=== PATIENT | female | born 1930 | race Caucasian/White ===

== ENCOUNTER 2016-08-10 10:52 | Emergency (ER) | payer MEDICARE, OTHER ==
[~2016-08-10] VITALS: Ht 162.6 cm; Wt 75.0 kg
[~2016-08-10 10:52] MED LIST: ACTONEL5 MG PO; ACYCLOVIR400 MG PO; ADVAIR DISK1 INH; ADVAIR DISKUS IN; ANTIVERT PO; CEPHALEXIN500 MG PO; CLONAZEP ODT0.5 MG OR; CLONAZEP ODT0.5 MG PO; FLUTICASONE50 MCG; GABAPENTIN100 MG PO; HYDROCO/APAP1 TA9 PO; KEFLEX500 MG PO; KLONOPIN0.5 MG PO; MACRODANTIN100 MG PO; NORCO1 TA1 PO; NORCO1 TA2 PO; OMEPRAZOLE20 MG PO; OSCAL 500/1 TAB OR; PRED FORTE1 % OP; PREDNISONE10 MG PO; PRILOSEC20 MG/CAP PO; PROAIR HFA IN; RESTASIS0.05 %; RESTASIS0.05 % OP; RESTASIS0.05 % OU; SINGULAIR 10 MG10 MG PO; STALEVO 100 PO; STALEVO 200 PO; SYSTANE CONTACTS SOO OU; ULTRACET PO; VESICARE5 MG PO; ZYRTEC10 MG PO; [UNRECOGNIZED DRUG - OTHER] OTIC
[2016-08-10] MEDS ORDERED: FLEXERIL PO (12:55)
[2016-08-10] MEDS ORDERED: ULTRAM50 M1 PO (12:55)
[2016-08-10 13:01] VITALS: BP 156/70
== END 2016-08-10 13:01 | disposition home or self-care (01) ==
LOC: ED 10:52
DX: S13.4XXA Sprain of ligaments of cervical spine, initial encounter (principal); M47.812 Spondylosis without myelopathy or radiculopathy, cervical region; I25.10 Atherosclerotic heart disease of native coronary artery without angina pectoris; G20 Parkinson's disease

== ENCOUNTER 2017-02-03 08:41 | Day surgery (SDC) | payer MEDICARE, OTHER ==
[~2017-02-03] VITALS: Ht 162.6 cm; Wt 59.0 kg
[~2017-02-03 08:41] MED LIST changes: +FLEXERIL PO; +ULTRAM50 M1 PO; +VESICARE5 M1 PO
[2017-02-03 10:50] VITALS: BP 159/70
== END 2017-02-03 11:05 | disposition home or self-care (01) ==
LOC: ENDO 08:41 → ORM 09:15 → ENDO 10:35
PROVIDERS: ATTEND Internal Medicine Gastroenterology
PROC: 0DB68ZX Excision of Stomach, Via Natural or Artificial Opening Endoscopic, Diagnostic (ICD-10-PCS; principal; 2017-02-03)
PROC: 0D758ZZ Dilation of Esophagus, Via Natural or Artificial Opening Endoscopic (ICD-10-PCS; 2017-02-03)
DX: R13.10 Dysphagia, unspecified (principal); Q39.8 Other congenital malformations of esophagus; K29.70 Gastritis, unspecified, without bleeding; K31.7 Polyp of stomach and duodenum; K44.9 Diaphragmatic hernia without obstruction or gangrene; K21.9 Gastro-esophageal reflux disease without esophagitis; R63.4 Abnormal weight loss; R11.0 Nausea; K59.00 Constipation, unspecified; R10.31 Right lower quadrant pain; J45.909 Unspecified asthma, uncomplicated; G20 Parkinson's disease

== ENCOUNTER 2017-04-15 11:39 | Emergency (ER) | payer MEDICARE, OTHER ==
[~2017-04-15] VITALS: Ht 162.6 cm; Wt 54.5 kg
[2017-04-15 12:50] LABS: URINE BILIRUBIN - DIPSTICK NEGATIVE (NEGATIVE); URINE BLOOD DIPSTICK NEGATIVE (NEGATIVE); URINE COLOR YELLOW; URINE GLUCOSE - DIPSTICK NEGATIVE (NEGATIVE); URINE KETONE NEGATIVE (NEGATIVE); URINE NITRITE - DIPSTICK NEGATIVE (Negative); URINE PROTEIN - DIPSTICK TRACE mg/dL (NEG-TRACE); URINE SPECIFIC GRAVITY 1.025; URINE UROBILINOGEN - DIPSTICK 0.2 E.U./dL (0.2)
[2017-04-15 12:59] LABS: URINE CLARITY CLEAR; URINE LEUK ESTERASE SMALL (NEGATIVE)
[2017-04-15 13:05] LABS: HEMOGLOBIN 14.8 g/dl (12.0-16.0); IMMATURE GRANULOCYTES 0.2 % (0.0-1.0); MEAN CELL VOLUME 94.9 fL CALC (80.0-100.0); MEAN CORPUSCULAR HGB 32.7 pG CALC (26.0-32.0); MEAN CORPUSCULAR HGB CONC 34.4 g/L CALC (32.0-36.0); NEUT# 2.55 thou/uL (2.00-7.15); RED BLOOD COUNT 4.53 mill/uL (4.20-5.60); RED CELL DISTRI WIDTH 11.9 % (11.5-15.5)
[2017-04-15 13:13] LABS: INFLUENZA A NONE DETECTED (NONE DETECT); INFLUENZA B POSITIVE (NONE DETECT)
[2017-04-15 13:49] LABS: CREATININE 1.3 mg/dL (0.5-1.0); POTASSIUM 4.5 mmol/l (3.5-5.1)
[2017-04-15] MEDS ORDERED: ZOFRAN4 M1 PO (14:01)
[2017-04-15] MEDS ORDERED: CHERATUSSIN PO (14:01)
[2017-04-15 14:16] VITALS: BP 161/72
[2017-04-15 22:10] LABS: URINE SQUAMOUS EPITHELIAL CELL FEW EPI/hpf (0-FEW)
== END 2017-04-15 14:47 | disposition home or self-care (01) ==
LOC: ED 11:39
PROVIDERS: Family Medicine
DX: J10.1 Influenza due to other identified influenza virus with other respiratory manifestations (principal); R05 Cough; R11.0 Nausea; R10.84 Generalized abdominal pain

== ENCOUNTER 2017-10-21 08:55 | Emergency (ER) | payer MEDICARE, OTHER ==
[~2017-10-21] VITALS: Ht 162.6 cm; Wt 50.0 kg
[~2017-10-21 08:55] MED LIST changes: +CHERATUSSIN PO; +ZOFRAN4 M1 PO
[2017-10-21] MEDS ORDERED: GENTAMICIN15 ML/BTL (09:49)
[2017-10-21] MEDS ORDERED: RESTASIS0.05 % (09:50)
[2017-10-21 10:25] LABS: HEMOGLOBIN 13.2 g/dl (12.0-16.0); IMMATURE GRANULOCYTES 0.4 % (0.0-5.0); MEAN CORPUSCULAR HGB 33.3 pG CALC (26.0-32.0); MEAN CORPUSCULAR HGB CONC 34.4 g/L CALC (32.0-36.0); NEUT# 3.45 thou/uL (2.00-7.15); RED BLOOD COUNT 3.96 mill/uL (4.20-5.60)
[2017-10-21 10:31] LABS: HEMATOCRIT 38.4 % (37.0-47.0)
[2017-10-21 10:50] LABS: ALBUMIN 3.8 g/dL (3.2-5.0); ALKALINE PHOSPHATASE 91 u/l (38-126); ANION GAP 13 (6-22 (CALC)); BILIRUBIN, TOTAL 0.6 mg/dL (0.0-1.4); BUN 23 mg/dL (8-23); BUN/CREATININE RATIO 25 (12-20 (CALC)); CARBON DIOXIDE 28 mmol/l (22-30); CHLORIDE 107 mmol/l (95-108); CREATININE 0.9 mg/dL (0.5-1.0); GFR 59 ML/MIN (>=60 (CALC)); GFR FOR AFR.AMER. > 60 ML/MIN (>=60 (CALC)); LIPASE 110 u/l (23-300); POTASSIUM 4.5 mmol/l (3.5-5.1); SGOT/AST 22 u/l (9-36); SGPT/ALT 17 u/l (11-66); SODIUM 144 mmol/l (137-146); TOTAL PROTEIN 6.3 g/dL (6.3-8.2)
[2017-10-21] MEDS ORDERED: LOSARTAN POT50 MG PO (11:13)
[2017-10-21] MEDS ORDERED: CLONAZEPAM0.5 M1 PO (11:13)
[2017-10-21 11:21] VITALS: BP 163/71
== END 2017-10-21 11:34 | disposition home or self-care (01) ==
LOC: ED 08:55
PROVIDERS: Family Medicine
DX: F13.239 Sedative, hypnotic or anxiolytic dependence with withdrawal, unspecified (principal); F41.9 Anxiety disorder, unspecified; I10 Essential (primary) hypertension; G20 Parkinson's disease; I34.0 Nonrheumatic mitral (valve) insufficiency; Z91.14 Patient's other noncompliance with medication regimen

== ENCOUNTER 2018-04-22 09:04 | Emergency (ER) | payer MEDICARE, OTHER ==
[~2018-04-22] VITALS: Ht 162.6 cm; Wt 56.8 kg
[~2018-04-22 09:04] MED LIST changes: +CLONAZEPAM0.5 M1 PO; +GENTAMICIN15 ML/BTL; +LOSARTAN POT50 MG PO
[2018-04-22 09:28] LABS: HEMATOCRIT 41.8 % (37.0-47.0); HEMOGLOBIN 13.9 g/dl (12.0-16.0); IMMATURE GRANULOCYTES 0.4 % (0.0-5.0); MEAN CELL VOLUME 99.1 fL CALC (80.0-100.0); MEAN CORPUSCULAR HGB 32.9 pG CALC (26.0-32.0); MEAN CORPUSCULAR HGB CONC 33.3 g/L CALC (32.0-36.0); NEUT# 2.46 thou/uL (2.00-7.15); RED BLOOD COUNT 4.22 mill/uL (4.20-5.60); RED CELL DISTRI WIDTH 12.2 % (11.5-15.5)
[2018-04-22] MEDS ORDERED: BUSPIRONE5 MG PO (09:36)
[2018-04-22] MEDS ORDERED: FISH OIL1000 MG PO (09:38)
[2018-04-22 09:40] LABS: ALBUMIN 4.4 g/dL (3.2-5.0); ALKALINE PHOSPHATASE 88 u/l (38-126); BILIRUBIN, TOTAL 0.8 mg/dL (0.0-1.4); BUN 26 mg/dL (8-23); BUN/CREATININE RATIO 24 (12-20 (CALC)); CARBON DIOXIDE 27 mmol/l (22-30); CREATININE 1.1 mg/dL (0.5-1.0); GFR 47 ML/MIN (>=60 (CALC)); GFR FOR AFR.AMER. 57 ML/MIN (>=60 (CALC)); POTASSIUM 4.5 mmol/l (3.5-5.1); SGOT/AST 30 u/l (9-36); SODIUM 143 mmol/l (137-146); TOTAL PROTEIN 7.3 g/dL (6.3-8.2)
[2018-04-22 09:50] LABS: ANION GAP 13 (6-22 (CALC)); CHLORIDE 108 mmol/l (95-108)
[2018-04-22] MEDS ORDERED: TRAMADOL HYDROC50 MG PO (10:36)
[2018-04-22] MEDS ORDERED: MOTRIN400 MG PO (10:36)
[2018-04-22 10:48] VITALS: BP 173/72
== END 2018-04-22 10:57 | disposition home or self-care (01) ==
LOC: ED 09:04
PROVIDERS: Family Medicine
DX: R55 Syncope and collapse (principal); S20.211A Contusion of right front wall of thorax, initial encounter; G20 Parkinson's disease; I34.1 Nonrheumatic mitral (valve) prolapse; W18.39XA Other fall on same level, initial encounter; Y93.9 Activity, unspecified; Y92.002 Bathroom of unspecified non-institutional (private) residence as the place of occurrence of the external cause; R06.02 Shortness of breath

== ENCOUNTER 2018-10-15 05:42 | Emergency (ER) | payer MEDICARE, OTHER ==
[~2018-10-15] VITALS: Ht 162.6 cm; Wt 65.0 kg
[~2018-10-15 05:42] MED LIST changes: +BUSPIRONE5 MG PO; +FISH OIL1000 MG PO; +MOTRIN400 MG PO; +TRAMADOL HYDROC50 MG PO
[2018-10-15] MEDS ORDERED: KEFLEX500 M1 PO (06:11)
[2018-10-15] MEDS ORDERED: IBUPROFEN600 MG PO (06:11)
[2018-10-15 06:20] VITALS: BP 156/71
== END 2018-10-15 06:20 | disposition home or self-care (01) ==
LOC: ED 05:42
DX: H66.92 Otitis media, unspecified, left ear (principal); M26.622 Arthralgia of left temporomandibular joint; G20 Parkinson's disease

== ENCOUNTER 2019-02-13 19:08 | Observation (INO) | payer MEDICARE, OTHER ==
[~2019-02-13] VITALS: Ht 162.6 cm; Wt 58.1 kg
[~2019-02-13 19:08] MED LIST changes: +IBUPROFEN600 MG PO; +KEFLEX500 M1 PO
[2019-02-13 19:36] LABS: HEMOGLOBIN 12.4 g/dl (12.0-16.0); IMMATURE GRANULOCYTES 0.6 % (0.0-5.0); MEAN CELL VOLUME 98.4 fL CALC (80.0-100.0); MEAN CORPUSCULAR HGB 32.1 pG CALC (26.0-32.0); MEAN CORPUSCULAR HGB CONC 32.6 g/L CALC (32.0-36.0); NEUT# 2.82 thou/uL (2.00-7.15); RED BLOOD COUNT 3.86 mill/uL (4.20-5.60); RED CELL DISTRI WIDTH 12.5 % (11.5-15.5)
[2019-02-13] MEDS ORDERED: LOSARTAN POTASS50 MG PO (19:56)
[2019-02-13 19:57] LABS: ALBUMIN 3.6 g/dL (3.2-5.0); ALKALINE PHOSPHATASE 67 u/l (38-126); ANION GAP 12 (6-22 (CALC)); BILIRUBIN, TOTAL 0.4 mg/dL (0.0-1.4); BUN 38 mg/dL (8-23); BUN/CREATININE RATIO 29 (12-20 (CALC)); CARBON DIOXIDE 24 mmol/l (22-30); CHLORIDE 107 mmol/l (95-108); CREATININE 1.3 mg/dL (0.5-1.0); GFR 39 ML/MIN (>=60 (CALC)); GFR FOR AFR.AMER. 47 ML/MIN (>=60 (CALC)); POTASSIUM 4.4 mmol/l (3.5-5.1); SGOT/AST 21 u/l (9-36); SODIUM 139 mmol/l (137-146); TOTAL PROTEIN 6.2 g/dL (6.3-8.2)
[2019-02-13] MEDS ORDERED: PRIMIDONE50 MG PO (19:57)
[2019-02-13] MEDS ORDERED: VITAMIN D H1000 UNIT PO (19:58)
[2019-02-13] MEDS ORDERED: TIZANIDINE HYDRO2 M1 PO (19:59)
[2019-02-13] MEDS ORDERED: PROAIR HFA108 MCG/AC IN (19:59)
[2019-02-13 20:08] LABS: MYOGLOBIN 71 ng/mL (0 - 62)
[2019-02-13 21:45] VITALS: BP 140/71
[2019-02-13 22:00] VITALS: BP 149/57
[2019-02-13 22:30] VITALS: BP 142/58
[2019-02-13 22:55] LABS: URINE BILIRUBIN - DIPSTICK NEGATIVE (NEGATIVE); URINE BLOOD DIPSTICK NEGATIVE (NEGATIVE); URINE COLOR YELLOW; URINE GLUCOSE - DIPSTICK NEGATIVE (NEGATIVE); URINE KETONE NEGATIVE (NEGATIVE); URINE LEUK ESTERASE NEGATIVE (NEGATIVE); URINE NITRITE - DIPSTICK NEGATIVE (Negative); URINE PH 5.5 (4.5-8.0); URINE PROTEIN - DIPSTICK NEGATIVE (NEG-TRACE); URINE UROBILINOGEN - DIPSTICK 0.2 E.U./dL (0.2)
[2019-02-14] VITALS (10 sets, daily range): BP systolic 111–157; BP diastolic 41–80
[2019-02-14 05:18] LABS: HEMATOCRIT 35.2 % (37.0-47.0); HEMOGLOBIN 11.3 g/dl (12.0-16.0); IMMATURE GRANULOCYTES 0.3 % (0.0-5.0); MEAN CELL VOLUME 98.3 fL CALC (80.0-100.0); MEAN CORPUSCULAR HGB 31.6 pG CALC (26.0-32.0); MEAN CORPUSCULAR HGB CONC 32.1 g/L CALC (32.0-36.0); NEUT# 1.75 thou/uL (2.00-7.15); RED BLOOD COUNT 3.58 mill/uL (4.20-5.60); RED CELL DISTRI WIDTH 12.2 % (11.5-15.5)
[2019-02-14 05:41] LABS: CREATININE 1.2 mg/dL (0.5-1.0); POTASSIUM 4.8 mmol/l (3.5-5.1)
== END 2019-02-14 12:05 ==
LOC: ED 19:08 → ED-I 20:49 → ED 20:59 → ICU 21:00
PROVIDERS: Emergency Medicine; ADMIT Internal Medicine; ATTEND Internal Medicine
DX: R55 Syncope and collapse (principal); R42 Dizziness and giddiness; G20 Parkinson's disease; I69.992 Facial weakness following unspecified cerebrovascular disease; M89.49 Other hypertrophic osteoarthropathy, multiple sites; K21.9 Gastro-esophageal reflux disease without esophagitis

== ENCOUNTER 2019-06-05 | Emergency (ER) | payer MEDICARE, OTHER ==
[~2019-06-05] MED LIST changes: +LOSARTAN POTASS50 MG PO; +PRIMIDONE50 MG PO; +PROAIR HFA108 MCG/AC IN; +TIZANIDINE HYDRO2 M1 PO; +VITAMIN D H1000 UNIT PO
[2019-06-05] MEDS ORDERED: MELOXICAM7.5 MG PO (11:24)
[2019-06-05] MEDS ORDERED: XGEVA SC (11:25)
[2019-06-05] MEDS ORDERED: PAIN RELIEF325 MG PO (11:26)
[2019-06-05] MEDS ORDERED: [UNRECOGNIZED DRUG - CODE] PO (11:28)
[2019-06-05] MEDS ORDERED: BL IBUPROFEN200 MG PO (11:30)
[2019-06-05] MEDS ORDERED: TRAMADOL HCL50 MG PO (12:20)
== END 2019-06-05 12:47 ==
DX: S30.0XXA Contusion of lower back and pelvis, initial encounter (principal); S29.011A Strain of muscle and tendon of front wall of thorax, initial encounter; G20 Parkinson's disease; I69.998 Other sequelae following unspecified cerebrovascular disease; W18.2XXA Fall in (into) shower or empty bathtub, initial encounter; Y92.002 Bathroom of unspecified non-institutional (private) residence as the place of occurrence of the external cause

== ENCOUNTER 2019-06-07 | Emergency (ER) | payer MEDICARE, OTHER ==
[~2019-06-07] MED LIST changes: +BL IBUPROFEN200 MG PO; +MELOXICAM7.5 MG PO; +PAIN RELIEF325 MG PO; +TRAMADOL HCL50 MG PO; +XGEVA SC; +[UNRECOGNIZED DRUG - CODE] PO
[2019-06-07 10:58] LABS: HEMATOCRIT 35.7 % (37.0-47.0); HEMOGLOBIN 11.8 g/dl (12.0-16.0); IMMATURE GRANULOCYTES 0.4 % (0.0-5.0); MEAN CELL VOLUME 99.7 fL CALC (80.0-100.0); MEAN CORPUSCULAR HGB CONC 33.1 g/dL CAL (32.0-36.0); NEUT# 3.3 thou/uL (2.00-7.15); RED BLOOD COUNT 3.58 mill/uL (4.20-5.60); RED CELL DISTRI WIDTH 11.9 % (11.5-15.5)
[2019-06-07 11:08] LABS: ALBUMIN 3.6 g/dL (3.2-5.0); ALKALINE PHOSPHATASE 74 u/l (38-126); ANION GAP 8 (6-22 (CALC)); BUN 33 mg/dL (8-23); BUN/CREATININE RATIO 31 (12-20 (CALC)); CARBON DIOXIDE 24 mmol/l (22-30); CHLORIDE 110 mmol/l (95-108); CREATININE 1.1 mg/dL (0.5-1.0); GFR 47 ML/MIN (>=60 (CALC)); GFR FOR AFR.AMER. 57 ML/MIN (>=60 (CALC)); POTASSIUM 4.7 mmol/l (3.5-5.1); SGOT/AST 27 u/l (9-36); SODIUM 137 mmol/l (137-146); TOTAL PROTEIN 6.2 g/dL (6.3-8.2)
[2019-06-07 11:18] LABS: BILIRUBIN, TOTAL 0.7 mg/dL (0.0-1.4)
[2019-06-07 11:20] LABS: MYOGLOBIN 55 ng/mL (0 - 62)
[2019-06-07] MEDS ORDERED: ULTRAM50 M1 PO (12:16)
--- NOTE | 2019-06-08 12:40 | NUR ---
Call Mónica Wu, spoke with Gisselle Lara (supervisor garage) and reported COVID results, asked to speak with patient. Gisselle to asssist patient with returning call.
== END 2019-06-07 13:25 ==
PROVIDERS: Emergency Medicine
DX: S29.011A Strain of muscle and tendon of front wall of thorax, initial encounter (principal); G20 Parkinson's disease; X58.XXXA Exposure to other specified factors, initial encounter; Z20.828 Contact with and (suspected) exposure to other viral communicable diseases